=== PATIENT | female | born 1970 | race Caucasian/White ===

== ENCOUNTER 2018-02-19 20:48 | Emergency (ER) | payer BC ==
[~2018-02-19] VITALS: Ht 157.5 cm; Wt 49.9 kg
[2018-02-19 21:06] VITALS: Ht 157.5 cm; Wt 49.9 kg
[2018-02-19 23:32] VITALS: BP 108/72
== END 2018-02-19 23:32 | disposition home or self-care (01) ==
LOC: ED 20:48
DX: S52.592A Other fractures of lower end of left radius, initial encounter for closed fracture (principal); S52.615A Nondisplaced fracture of left ulna styloid process, initial encounter for closed fracture; V00.131A Fall from skateboard, initial encounter; Y93.21 Activity, ice skating; Y92.89 Other specified places as the place of occurrence of the external cause; Y99.8 Other external cause status
CPT/HCPCS: J2405; J3010; J3490; Q0092